=== PATIENT | male | born 1995 | race Caucasian/White ===

== ENCOUNTER 2018-07-14 09:28 | Emergency (ER) | payer OTHER ==
[2018-07-14 09:59] VITALS: BP 142/79
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
--- NOTE | 2018-07-14 12:08 | XRAY Report ---
Reason: fell and struck right shoulder; pain at clavicle Procedure Date: 07/14/2018 Accession Number: [id number] / [id number] Procedure: XR - Shoulder 3 View RT CPT Code: FULL RESULT: EXAM: RIGHT SHOULDER RADIOGRAPHY EXAM DATE: 07/14/2018 11:47 AM. CLINICAL HISTORY: COMPARISON: None. TECHNIQUE: 3 views. FINDINGS: Bones: No fracture or bone lesion. Joints: There is type III acromioclavicular separation. Soft tissues: There is soft tissue swelling. IMPRESSION: Type III AC separation RADIA
== END 2018-07-14 12:32 | disposition home or self-care (01) ==
LOC: ED 09:28
DX: M75.91 Shoulder lesion, unspecified, right shoulder (principal); S43.101A Unspecified dislocation of right acromioclavicular joint, initial encounter; V19.9XXA Pedal cyclist (driver) (passenger) injured in unspecified traffic accident, initial encounter; Y93.55 Activity, bike riding
CPT/HCPCS: 99283

== ENCOUNTER 2019-08-29 14:07 | Outpatient (CLI) | payer OTHER ==
--- NOTE | 2019-08-29 16:27 | MRI Report ---
Reason: RT WRIST PAIN Procedure Date: 08/29/2019 Accession Number: [id number] / [id number] Procedure: MRI - Wrist RT W/O CPT Code: FULL RESULT: EXAM: RIGHT WRIST MRI WITHOUT CONTRAST EXAM DATE: 08/29/2019 03:10 PM. CLINICAL HISTORY: Right wrist pain. COMPARISON: None. TECHNIQUE: Multiplanar, multisequence T1-weighted and fluid-sensitive sequences of the wrist without contrast. Other: None. FINDINGS: Evaluation moderately limited due to motion and artifact. Bones: No fractures or subluxations. No marrow edema. No bone lesions. Cartilage: The articular cartilage is unremarkable. Subtle irregularity of the central substance radial insertion triangular fibrocartilage complex. Ulnar insertion grossly intact. Ligaments: The scapholunate and lunotriquetral ligaments are grossly intact.The visualized other intrinsic, extrinsic and collateral ligaments are unremarkable. Tendons: Extensor tendons unremarkable. Mild thickening of the visualized flexor carpi radialis tendon with moderate amount of excess fluid in the tendon sheath. 1.0 cm lobulated focus of fluid partially visualized surrounding the flexor pollicis longus tendon in the distal forearm. This extends proximally outside the field of view. 1.1 cm linear focus of fluid along the deep and radial aspect of the flexor tendons in the carpal tunnel distally. Small amount of excess fluid in the tendon sheaths of the fourth and fifth flexor tendons proximal to and distal to the carpal tunnel. Musculature: No edema or fatty atrophy. Other: The contents of the carpal tunnel, including the median nerve, are unremarkable. Guyons canal is unremarkable. 0.4 x 1.0 x 1.5 cm lobulated ganglion at the volar aspect radiocarpal joint.0.3 cm ganglion at the dorsal aspect of the lunate. 0.3 cm ganglion at the dorsal aspect of the triquetral. 0.6 cm ganglion at the radial aspect first carpometacarpal joint. No large joint effusion.Mild subcutaneous edema over the volar aspect distal radius adjacent to the flexor carpi radialis tendon. IMPRESSION: 1. Mild flexor carpi radialis tendinopathy and moderate tenosynovitis. 2. Mild tenosynovitis versus ganglion partially visualized at the flexor pollicis longus tendon in the distal forearm. 3. Mild reactive fluid versus tenosynovitis at the fourth and fifth flexor tendons. 4. 1.1 cm linear focus of reactive fluid versus ganglion deep to the second and third flexor tendons in the carpal tunnel. 5. Multiple small ganglion throughout the carpus, largest at the volar aspect radiocarpal joint measures 1.5 cm. 6. Possible focal full-thickness tear central fibers radial insertion triangular fibrocartilage complex versus artifact. RADIA
== END 2019-08-29 14:08 | disposition home or self-care (01) ==
LOC: DI 14:07
PROVIDERS: ATTEND General Practice
DX: M67.431 Ganglion, right wrist (principal); M65.831 Other synovitis and tenosynovitis, right forearm

== ENCOUNTER 2019-09-16 08:34 | Outpatient (CLI) | payer OTHER ==
[2019-09-16] MEDS ORDERED: BUFFERED LIDOCAINE 10 ML SYRINGE ONE (08:55)
[2019-09-16] MEDS ORDERED: IOTHALAMATE MEGLUMINE 50 ML VIAL ONE (08:56)
[2019-09-16] MEDS ORDERED: GADOBUTROL 10 MMOL/10 ML VIAL ONE (08:56)
[2019-09-16] MEDS: BUFFERED LIDOCAINE 10 ML SYRINGE IU ONE (11:37)
[2019-09-16] MEDS ORDERED: GADOBUTROL 10 MMOL/10 ML VIAL IVP ONE (11:37)
[2019-09-16] MEDS ORDERED: IOTHALAMATE MEGLUMINE 50 ML VIAL IVP ONE (11:37)
[2019-09-16] MEDS: GADOBUTROL 10 MMOL/10 ML VIAL IVP ONE (11:38)
[2019-09-16] MEDS: IOTHALAMATE MEGLUMINE 50 ML VIAL IVP ONE (11:39)
--- NOTE | 2019-09-16 12:35 | XRAY Report ---
Reason: RT SHOULDER PAIN Procedure Date: 09/16/2019 Accession Number: [id number] / [id number] Procedure: FL - Arthrogram Needle Placement CPT Code: FULL RESULT: EXAM: RIGHT SHOULDER ARTHROGRAPHIC INJECTION WITH FLUOROSCOPIC GUIDANCE EXAM DATE: 09/16/2019 10:00 AM. CLINICAL HISTORY: RT SHOULDER PAIN. COMPARISON: SHOULDER 3 VIEW RT 07/14/2018 11:36 AM ARTHROGRAM SHOULDER RT 09/16/2019 10:32 AM. TECHNIQUE: The risks, benefits, and alternatives of the procedure were discussed with the patient. All questions were answered. Written and verbal consent were obtained. The right glenohumeral joint was marked under fluoroscopy and prepped and draped in a sterile manner. Local anesthesia was performed with 1% lidocaine. A 22-gauge needle was then inserted into the glenohumeral joint. 10 mL of a solution containing 25% 1% lidocaine, 25% iodinated contrast, and a 1:200 dilution of gadolinium contrast in sterile saline was then injected. The needle was removed without immediate complication. Other: None. Fluoroscopy Time: 53 seconds. Number of Images: 4. FINDINGS: Bones and joints: No fracture or subluxation. Injection: Fluoroscopic images demonstrate needle placement and contrast in the glenohumeral joint. No contrast extravasation outside of the glenohumeral joint. IMPRESSION: Successful fluoroscopically guided arthrographic injection of the right shoulder. RADIA
--- NOTE | 2019-09-16 14:27 | MRI Report ---
Reason: RT SHOULDER PAIN Procedure Date: 09/16/2019 Accession Number: [id number] / [id number] Procedure: MRI - Arthrogram Shoulder RT CPT Code: FULL RESULT: EXAM: RIGHT SHOULDER MRI ARTHROGRAM WITH CONTRAST EXAM DATE: 09/16/2019 11:04 AM. CLINICAL HISTORY: Right shoulder pain. COMPARISON: SHOULDER 3 VIEW RT 07/14/2018 11:36 AM. Images and report from [facility]. TECHNIQUE: Multiplanar, multisequence T1-weighted and fluid-sensitive sequences of the shoulder after an arthrographic injection of dilute gadolinium, dictated under a separate exam. Other: None. FINDINGS: Acromioclavicular Region: The acromion is type II. The AC joint is broadened, patient appears to be status post Vinay procedure. The coracoacromial and coracoclavicular ligaments are intact. There is no contrast or fluid in the subacromial/subdeltoid bursa. Glenohumeral Region: No subluxation. No loose bodies. The articular cartilage is unremarkable. The glenohumeral ligaments and joint capsule are unremarkable. Bone Marrow: No fracture, marrow edema or bone lesions. Labrum: The labrum is unremarkable. Biceps Tendon: The long head of the biceps tendon and biceps sophie are intact. Musculature/Rotator Cuff: Subscapularis is intact and normal. Supraspinatus and infraspinatus tendons are thickened and show some undersurface increased T2 signal. No proximal muscle bundle edema or fatty atrophy. No edema or fatty atrophy. Other: At the posterior margin of the bony glenoid, small presumed loose bodies versus soft tissue calcifications are noted. IMPRESSION: 1. Type II unipartite undersurface osseous acromion shape. AC joint is broadened and appears to be status post Vinay procedure. 2. Mild tendinopathy seen at the supraspinatus and infraspinatus tendons. Subscapularis and teres minor are normal. No proximal muscle edema or fatty atrophy is seen. 3. At the posterior margin of the bony glenoid, small presumed loose bodies versus soft tissue calcifications are seen. This does appear to be extracapsular. Importantly, labrum and bony glenoid at this location appear unremarkable. RADIA
== END 2019-09-16 08:35 | disposition home or self-care (01) ==
LOC: DI 08:34
PROVIDERS: ATTEND General Practice
DX: M67.911 Unspecified disorder of synovium and tendon, right shoulder (principal)
CPT/HCPCS: 23350; 73222; 77002; A9585; Q9961